=== PATIENT | male | born 1975 ===

== ENCOUNTER 2021-02-03 10:07 | Emergency (ER) | payer SELFPAY ==
[~2021-02-03] VITALS: Ht 167.6 cm; Wt 69.2 kg
[2021-02-03 10:33] VITALS: BP 123/77
== END 2021-02-03 12:00 | disposition left against medical advice (07) ==
LOC: ER 10:08
DX: M25.571 Pain in right ankle and joints of right foot (principal); Z53.21 Procedure and treatment not carried out due to patient leaving prior to being seen by health care provider